=== PATIENT | male | born 1995 | race Caucasian/White ===

== ENCOUNTER 2021-02-08 12:41 | Emergency (ER) | payer OTHER | END 2021-02-08 14:30 | disposition home or self-care (01) | LOC: ER1 12:41 | DX: S61.212A Laceration without foreign body of right middle finger without damage to nail, initial encounter (principal); W26.0XXA Contact with knife, initial encounter; Y92.009 Unspecified place in unspecified non-institutional (private) residence as the place of occurrence of the external cause | CPT/HCPCS: 12001; 99283 ==